=== PATIENT | male | born 1960 | race Caucasian/White ===

== ENCOUNTER 2024-01-04 06:52 | Day surgery (SDC) | payer OTHER, SELFPAY ==
[2023-12-22 12:09] VITALS: BMI 26.0
[2024-01-04 07:12] VITALS: BMI 25.3
[2024-01-04 07:31] VITALS: BP 129/86; PULSE 82; RESP 17; TEMP 36.6; O2SAT 97
--- NOTE | 2024-01-04 07:38 | PM.PREOP ---
Pre-operative Note Interval Note History & Physical reviewed/Exam performed by Physician: Yes Changes to H&P: No
[2024-01-04] MEDS: SCOPOLAMINE 1 PATCH TOP (07:43)
[2024-01-04] MEDS: LACTATED RINGERS 1,000 ML 21 ML IV (07:43)
[2024-01-04] MEDS: CEFAZOLIN 2 GM/100 ML PREMIX 100 ML IV (07:57)
[2024-01-04] MEDS: BUPIVACAINE 0.25% (PF) VIAL 30 ML INJ (08:12)
--- NOTE | 2024-01-04 08:24 | SUR.OPER ---
Supine on padded OR bed, head on pillow, arms secured on padded arm boards at <90 degrees abduction, legs uncrossed, safety belt at thigh.
--- NOTE | 2024-01-04 08:43 | P.OP_ITS ---
Operative Date/Time/Diagnoses Date of procedure: 01/04/24 Time of procedure: 08:43 Pre-op diagnosis: Umbilical hernia Post-op diagnosis: same Procedure & Clinicians Procedure: Open umbilical hernia repair Same procedure as scheduled: Yes Indications: 63 y.o man with a symptomatic reducible umbilical hernia Surgeon: Harjinder [place] Or Wind Instrument Tuner: Carlo Girard Anesthesia Type: General Operative Notes Findings: 2 cm fascial defect containing omentum Specimen(s): none sent Estimated Blood Loss (mL): 10 Procedure in detail: Patient was brought to the operating room placed supine on the table. Bilateral lower extremity compression devices were applied. General anesthesia was induced and they were intubated with an endotracheal tube. They received 2 g of Ancef prior to skin incision. They were prepped and draped in sterile fashion. A time-out was performed. A curvilinear incision was made inferior to the umbilicus. The subcutaneous tissues were divided. The umbilical hernia was identified and the hernia sac was dissected off the umbilical skin and circumferentially off of the fascia defect. The hernia sac was sharply opened and contained viable omentum. The omentum was reduced back into the abdomen. Using blunt dissection I carefully carefully freed the hernia sac from beneath the fascia defect in order to accomodate the mesh. The fascia defect was 2.0 cm in maximal diameter. A Bard Ventralex ST hernia patch 6.4 cm was inserted beneath the fascia defect and above the peritoneum in a sublay position. The mesh was anchored in multiple locations using Ethibond suture to the fascia and the fascial defect was closed over the mesh. The umbilical skin was tacked to the subcutaneous tissues and then the remainder of the subcutaneous tissues were reapproximated using 3 0 Vicry,l skin closed with 4 0 Monocryl followed by the application of Dermabond and Steri-Strips. Sponge instrument count at the end of the operation was correct. Patient tolerated procedure well was extubated and transferred to postoperative care unit in stable condition. Complications: none Post-operative Condition: stable Disposition: same day surgery
[2024-01-04 08:44] VITALS: BP 112/72; PULSE 85; RESP 12; TEMP 36.3; O2SAT 93
[2024-01-04 08:49] VITALS: BP 107/70; PULSE 85; RESP 18; O2SAT 94
[2024-01-04 09:05] VITALS: BP 107/77; PULSE 77; RESP 12; TEMP 36.3; O2SAT 95
[2024-01-04 09:20] VITALS: BP 114/82; PULSE 79; RESP 16; O2SAT 95
[2024-01-04] MEDS: OXYCODONE IR 5 MG TABLET PO (09:43)
== END 2024-01-04 09:56 | disposition home or self-care (01) ==
PROVIDERS: PCP Family Medicine; Referring Provider Surgery; Visit Provider Surgery
PROC: (CPT 49591; principal; 2024-01-04 07:45)
DX: K42.9 Umbilical hernia without obstruction or gangrene (principal)
CPT/HCPCS: 49591; 82962; J0690; J1100; J1885; J2250; J2405; J2704; J3010

== ENCOUNTER → 2024-02-13 16:08 | Outpatient (CLI) | payer OTHER, SELFPAY ==
[2024-02-14 09:41] LABS: Fecal Immunochemical Test Negative (Negative)
== END ==
LOC: LAB 16:08
PROVIDERS: PCP Family Medicine; Referring Provider Family Medicine; Visit Provider Family Medicine
DX: Z12.11 Encounter for screening for malignant neoplasm of colon (principal)
CPT/HCPCS: 82274